=== PATIENT | male | born 1985 | race Two or more races ===

== ENCOUNTER 2017-09-10 22:31 | Emergency (ER) | payer SELFPAY ==
[2017-09-11 00:14] LABS: RED BLOOD COUNT 4.72 Mil/cmm (4.30-5.70)
[2017-09-11 00:19] LABS: % BASOPHILS 0.4 % (0.0-2.0); % EOSINOPHILS 4.9 % (0.0-5.0); % LYMPHOCYTES 38.3 % (20.0-50.0); % MONOCYTES 8.6 % (2.0-10.0); % NEUTROPHILS 47.8 % (40.0-80.0); HEMATOCRIT 42.3 % (41.0-60); HEMOGLOBIN 14.6 gm/dL (12-16); MEAN CELL VOLUME 89.6 fl (80-99); MEAN CORPUSCULAR HEMOGLOBIN 30.9 pg (26.0-30.0); MEAN CORPUSCULAR HGB CONC 34.4 pg (28.0-36.0); MEAN PLATELET VOLUME 7.5 fl; PLATELET COUNT 254 Th/cmm (150-400); WHITE BLOOD COUNT 8.3 Th/cmm (4.8-10.8)
[2017-09-11 01:09] LABS: ANION GAP 9.1 (7.0-16.0); BUN - UREA NITROGEN 12 mg/dL (7-25); BUN/CREATININE RATIO 17.1; CALCIUM SERUM 9.2 mg/dL (8.6-10.3); CARBON DIOXIDE 26.5 mEq/L (21.0-31.0); CHLORIDE 104 mEq/L (98-107); CREATININE - SERUM 0.7 mg/dL (0.7-1.3); GLUCOSE 120 mg/dL (70-105); POTASSIUM SERUM 3.6 mEq/L (3.5-5.1); SODIUM SERUM 136 mEq/L (136-145)
--- NOTE | 2017-09-11 08:13 | Diagnostic Imaging Report ---
Exam: Right great toe HISTORY: Injury. Findings: Multiple views of right great toe reviewed the study demonstrates no evidence of fracture dislocation of soft tissue swelling. IMPRESSION: normal examination right great toe.
--- NOTE | 2017-09-13 14:43 | ER Physician Documentation ---
DATE OF SERVICE: HISTORY OF PRESENT ILLNESS: A 32-year-old male patient, the history was taken from the patient. 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 He was lifting up multiple logs of wood and one of the logs of wood fell on his right great toe, giving rise to swelling and pain, this occurred yesterday. It was very painful and hence he could not come. He came here may be about more than an hour ago and there was no x-ray machine available at the present moment to check if there is any fracture. The patient's pain is less. The patient does not have any history of gout or elevated uric acid level. The patient has only this medical condition, no other medical condition. No diabetes, no hypertension, no gout, no elevated cholesterol. No evidence of any injury, accidents, trauma, etc, ____. PERSONAL HISTORY: He is not , no children. FAMILY HISTORY: Benign and negative. Parents are alive, doing fine. REVIEW OF SYSTEMS: Essentially benign, negative. No history of any stroke, paralysis, blindness, TB, ulcers, cancers, tumors. No history of any GI bleeding, gastric ulcer, duodenal ulcer etc. PHYSICAL EXAMINATION: The patient appears to be awake, alert, oriented, not in any acute cardiorespiratory distress. ____. Jugular pressure is normal. Overall general exam benign and negative. No meningeal signs. No edema of the legs. The right toe is swollen, somewhat tender, painful. No definite evidence of cellulitis, maybe mild infection, etc., could be present for which the patient might be given antibiotic by me in the form of Augmentin. The patient's vital signs revealed temperature 98.4, pulse of 72, blood pressure 120/75, respiratory rate of 18, oxygen saturation of 98%, 5 feet 7 inches height and weight 180 pounds. Pain level of 7, it has come down to close to 5. CLINICAL IMPRESSION: The patient's diagnosis is trauma to the right great toe while he was in his bakery and a log of food which he was lifting fell on his leg injuring his right great toe. The patient was given 500 mg of Naprosyn. Uric acid level etc., has been ordered. The patient will be sent home on Naprosyn 500 b.i.d. for 10 days. It is okay to stop if the patient has been subsides allopurinol 300 mg once a day to cover for if there is any evidence of gout. Protonix to prevent for any gastritis or gastroesophageal reflux disease that might occur in the patient, and because the patient has pain in the right great toe and there is some evidence of maybe mild cellulitis, we will give the patient some clindamycin 600 mg p.o. twice a day for 5 days. [facility]# [id number]
== END 2017-09-11 00:45 | disposition home or self-care (01) ==
LOC: ER 22:31
DX: S99.921A Unspecified injury of right foot, initial encounter (principal); W19.XXXA Unspecified fall, initial encounter; Y93.89 Activity, other specified; Y92.89 Other specified places as the place of occurrence of the external cause; Y99.8 Other external cause status
CPT/HCPCS: 36415-UA; 73660-TC-T5; 80048-TC; 84550-TC; 85025-TC